=== PATIENT | female | born 1980 | race Caucasian/White ===

== ENCOUNTER 2019-09-06 10:41 | Inpatient (IN) | payer BC ==
[2019-09-24] VITALS (18 sets, daily range): BP systolic 90–139; BP diastolic 51–84; PULSE 71–98; TEMP 97.9–98.2
--- NOTE | 2019-09-24 07:50 | NUR ---
Patient arrives ambulatory with spouse with complaints of one episode of bright red vaginal bleeding this morning and cramping every since. Patient states "I got up to use the bathroom this morning and noticed about as much bleeding as a normal period in the toilet". Patient states she has not had any bleeding since. Patient denies ROM. Reports cramping every 6 minutes that is getting more intense. Patient reports normal movements. Patient changes into gown, EFM explained and placed. VS obtained. Difficulty obtaining continuous FHR tracing on baby A due to movement. Multiple RNs at bedside adjusting monitors. 0811- SVE by this RN and Eileen Garcia RN with nonvertex presentation suspected. Dr. Louis on unit, notified by Eileen Garcia RN of patient assessment and history reviewed. 0820- IV started and labs obtained, LR infusing preop. Consents explained and signed. Assessment completed. 0825- Report to Kranthi Hand RN who assumes care of patient at this time. Dr. Louis at bedside.
--- NOTE | 2019-09-24 08:20 | NUR ---
This RN at bedside and /Patrick RN at bedside and discussing plan of care and procedure/risks. Patient verbalizes understanding and agrees to plan of care. Nini RN shaves patients superpubic area and prepped for surgery. 0845: Patient off monitors. 0850: Patient ambulates to OR. orders to not doppler FHR tones in OR.
[2019-09-24] MEDS ORDERED: PRENATAL TABLET PO (08:24)
[2019-09-24] MEDS ORDERED: TYLENOL 500MG500 MG PO (08:25)
[2019-09-24 08:39] LABS: BASO % 0.3 % (0.0-2.0); EOS # 0.1 (0.0-0.7); EOS % 1.6 % (0-4.0); GRAN # 3.7 (1.4-6.5); GRAN % 59.2 % (42.2-75.2); HEMOGLOBIN 11.6 g/dl (12.5-16.0); LYMPH # 1.9 (1.2-3.4); LYMPH % 29.5 % (20.0-51.0); MEAN CELL VOLUME 87 fl (80.0-100.0); MEAN CORPUSCULAR HEMOGLOBIN 28 pg (27.0-31.0); MEAN CORPUSCULAR HGB CONC 33 g/dl (33.0-37.0); MEAN PLATELET VOLUME 11.7 fl (7.4-10.4); MONO # 0.6 (0.1-0.6); MONO % 8.9 % (1.7-9.3); PLATELET COUNT 193 K/mm3 (130-400); REDCELL DISTRIBUTION WIDTH-CV 15.8 % (11.5-14.5)
[2019-09-24 08:45] LABS: HEMATOCRIT 35.5 % (37.0-47.0)
[2019-09-24 09:53] LABS: ALBUMIN 3.1 gm/dL (3.5-5.0); BILIRUBIN,TOTAL 0.4 mg/dL (0.0-1.0); CREATININE, serum 0.68 (0.52-1.25); TOTAL PROTEIN 6.3 gm/dL (6.4-8.2)
--- NOTE | 2019-09-24 13:30 | NUR ---
Patient sitting on edge of and this RN and Francisco RN at bedside. New gown, pad, underwear on and patient assisted to wheel chair and to nursery to see babies.
--- NOTE | 2019-09-24 16:30 | NUR ---
Patient up to bathroom with standby assist. Dumas catheter removed and patient tolerates well. Pericare done, new pad and underwear on. Plan of care discussed.
[2019-09-25 01:45] VITALS: BP 139/88; PULSE 93; TEMP 97.8
[2019-09-25 05:05] VITALS: BP 148/74; PULSE 80; TEMP 98
[2019-09-25 08:00] VITALS: BP 138/77; PULSE 81; TEMP 97.7
[2019-09-25 08:12] LABS: HEMATOCRIT 32.1 % (37.0-47.0)
[2019-09-25 12:30] VITALS: BP 144/76; PULSE 89; TEMP 98.6
[2019-09-25 17:00] VITALS: BP 132/81; PULSE 81; TEMP 97.5
[2019-09-25 20:00] VITALS: BP 124/65; PULSE 81; TEMP 97.5
[2019-09-26 08:30] VITALS: BP 125/50; PULSE 87; TEMP 97.8
[2019-09-26 16:15] VITALS: BP 140/71; PULSE 87; TEMP 98.9
[2019-09-26 20:00] VITALS: BP 135/76; PULSE 84; TEMP 98.5
--- NOTE | 2019-09-26 22:20 | NUR ---
PT REFUSES 2300 MOTRIN - WISHES TO SLEEP. NON ADHERENT TELFA OVER INCISION UNDER PANUS
[2019-09-27 07:56] VITALS: BP 114/68; PULSE 74; TEMP 98.1
[2019-09-27] MEDS ORDERED: PERCOCET 325 MG1 TA2 PO (09:11)
[2019-09-27] MEDS ORDERED: IBU600 MG PO (09:11)
[2019-09-27 12:32] VITALS: BP 104/78; PULSE 76; TEMP 98.7
== END 2019-09-27 14:29 | disposition home or self-care (01) | DRG 786 ==
LOC: LDR 09-24 07:46 → OB 09-24 07:46 → LDR 09-24 08:56 → OB 09-24 12:00 → LDRO 10-04 10:38 → EDSTATUS 10-04 13:29 → LDR 10-04 13:30
PROVIDERS: ADMIT Obstetrics & Gynecology
PROC: 10D00Z1 Extraction of Products of Conception, Low, Open Approach (ICD-10-PCS; principal; 2019-09-24)
DX: O32.8XX1 Maternal care for other malpresentation of fetus, fetus 1 (principal); O60.14X2 Preterm labor third trimester with preterm delivery third trimester, fetus 2; O60.14X1 Preterm labor third trimester with preterm delivery third trimester, fetus 1; O30.043 Twin pregnancy, dichorionic/diamniotic, third trimester; Z3A.35 35 weeks gestation of pregnancy; Z37.2 Twins, both liveborn
CPT/HCPCS: J0690; J1885; J2370; J2405; J2550; J2590; J7120

== ENCOUNTER → 2020-11-27 | Outpatient (CLI) | payer OTHER ==
[~2020-11-27] MED LIST: IBU600 MG PO; PERCOCET 325 MG1 TA2 PO; PRENATAL TABLET PO; TYLENOL 500MG500 MG PO
== END ==
LOC: MC.RAD 14:45
DX: Z12.31 Encounter for screening mammogram for malignant neoplasm of breast (principal); N63.10 Unspecified lump in the right breast, unspecified quadrant

== ENCOUNTER → 2020-11-30 | Outpatient (CLI) | payer OTHER, MEDICAID | LOC: MC.RAD 07:45 | DX: N63.12 Unspecified lump in the right breast, upper inner quadrant (principal) ==

== ENCOUNTER → 2020-12-19 | Outpatient (CLI) | payer OTHER, MEDICAID | LOC: MC.RAD 10:00 | DX: Z98.890 Other specified postprocedural states (principal); Z98.82 Breast implant status; N63.10 Unspecified lump in the right breast, unspecified quadrant ==